=== PATIENT | female | born 1950 | race Caucasian/White ===

== ENCOUNTER → 2017-04-23 | Outpatient (CLI) | payer MEDICARE | END | disposition home or self-care (01) | LOC: CFH 14:12 → MERGE 14:12 | PROVIDERS: ATTEND Physician Assistant | DX: S52.572A Other intraarticular fracture of lower end of left radius, initial encounter for closed fracture (principal); S52.692A Other fracture of lower end of left ulna, initial encounter for closed fracture; M19.042 Primary osteoarthritis, left hand; X58.XXXA Exposure to other specified factors, initial encounter; Y93.89 Activity, other specified; Y92.89 Other specified places as the place of occurrence of the external cause; Y99.8 Other external cause status ==

== ENCOUNTER 2018-02-14 09:04 | Observation (INO) | payer MEDICARE ==
[~2018-02-14] VITALS: Ht 162.6 cm; Wt 86.0 kg
[2018-02-14] MEDS ORDERED: ASPIRIN (09:18)
[2018-02-14] MEDS ORDERED: ASPI-650 PO ×2 (09:18→09:52)
[2018-02-14] MEDS ORDERED: MECLIZINE CHEWABLE 25 MG TAB PO ONE (09:30)
[2018-02-14] MEDS ORDERED: ONDANSETRON ODT 4 MG PO ONE (09:30)
[2018-02-14] MEDS ORDERED: SODIUM CHLORIDE FLUSH 10ML SYR IVF ONE (09:30)
[2018-02-14] MEDS ORDERED: LISINOPRIL (09:51)
[2018-02-14] MEDS ORDERED: HCTZ (09:51)
[2018-02-14] MEDS ORDERED: SIMVASTATIN (09:51)
[2018-02-14] MEDS ORDERED: ONDANSETRON ODT 4 MG ONE (10:00)
[2018-02-14] MEDS ORDERED: MECLIZINE CHEWABLE 25 MG TAB ONE (10:00)
[2018-02-14 10:07] LABS: BASOPHILS # (AUTO) 0.02 x10^3/uL (0-0.1); BASOPHILS % (AUTO) 0 % (0-1); EOSINOPHILS # (AUTO) 0.16 x10^3/uL (0-0.4); EOSINOPHILS % (AUTO) 3 % (1-7); LYMPHOCYTES # (AUTO) 1.38 x10^3/uL (1-3.4); LYMPHOCYTES % (AUTO) 25 % (22-44); MD NO; MEAN CORPUSCULAR HEMOGLOBIN 32.2 pg (27.0-34.8); MEAN CORPUSCULAR HGB CONC 34.3 g/dL (32.4-35.8); MEAN CORPUSCULAR VOLUME 93.9 fL (80-100); MONOCYTES # (AUTO) 0.44 x10^3/uL (0.2-0.8); MONOCYTES % (AUTO) 8 % (2-9); NEUTROPHILS # (AUTO) 3.57 x10^3/uL (1.8-6.8); NEUTROPHILS % (AUTO) 64 % (42-75); PLATELET COUNT 259 x10^3/uL (130-400); RED BLOOD COUNT 4.41 x10^6/uL (3.82-5.3)
[2018-02-14 10:15] LABS: ALANINE AMINOTRANSFERASE 25 U/L (12-78); ALBUMIN 3.8 g/dL (3.4-5.0); ANION GAP 8 mmol/L (5-15); CALCIUM 9.9 mg/dL (8.5-10.1); CHLORIDE 103 mmol/L (98-107)
[2018-02-14 10:20] LABS: ALKALINE PHOSPHATASE 62 U/L (45-117); BILIRUBIN,TOTAL 0.5 mg/dL (0.2-1.0); TOTAL PROTEIN 7.4 g/dL (6.4-8.2); TROPONIN I < 0.015 ng/mL (0.000-0.045)
[2018-02-14 10:23] LABS: INTERNATIONAL NORMALIZED RATIO 0.93 (0.93-1.1); PROTHROMBIN TIME 9.6 Seconds (9.6-11.5)
[2018-02-14] MEDS ORDERED: SODIUM CHLORIDE FLUSH 10ML SYR IVF PRN (11:00)
[2018-02-14] MEDS ORDERED: ENALAPRILAT 1.25 MG/ML, 2ML IVPush PRN (11:30)
[2018-02-14] MEDS ORDERED: BISACODYL 10 MG SUPP PR PRN (11:30)
[2018-02-14] MEDS ORDERED: hydrALAzine 20 MG/ML, 1ML IVPush PRN (11:30)
[2018-02-14] MEDS ORDERED: POLYETHYLENE GLYCOL 17 GM PACKET PO PRN (11:30)
[2018-02-14] MEDS ORDERED: ACETAMINOPHEN 325 MG TABLET PO PRN (11:30)
[2018-02-14] MEDS ORDERED: LABETALOL 5MG/ML, 20ML IVPush PRN (11:30)
[2018-02-14] MEDS ORDERED: DOCUSATE 100 MG CAPSULE PO PRN (11:30)
[2018-02-14] MEDS ORDERED: ONDANSETRON 2MG/ML, 2ML IVPush PRN (11:30)
[2018-02-14 11:52] LABS: MICROSCOPIC NOT IND
[2018-02-14 11:54] LABS: CULTURE INDICATED? NO
[2018-02-14] MEDS ORDERED: BUPR150T73 PO (11:58)
[2018-02-14] MEDS ORDERED: ALEN70TA5 PO (11:58)
[2018-02-14] MEDS ORDERED: HYDR12.53 PO (11:58)
[2018-02-14] MEDS ORDERED: LISI40TA PO (11:58)
[2018-02-14] MEDS ORDERED: SIMV40TA3 PO (11:58)
[2018-02-14] MEDS ORDERED: GADOBUTROL 7.5 MMOL/7.5 ML PFS ONE (12:03)
[2018-02-14] MEDS: SODIUM CHLORIDE 0.9% 1,000 ML IV SCH ×2 (13:29→23:03)
[2018-02-14 14:00] VITALS: BP 120/74
[2018-02-14 14:02] VITALS: BP 142/81
[2018-02-14 14:04] VITALS: BP 137/82
[2018-02-14] MEDS: [UNRECOGNIZED DRUG - OTHER] MC SCH ×2 (14:30→22:30)
[2018-02-14] MEDS: HEPARIN 5,000 UNITS/ML, 1ML SQ SCH ×2 (15:20→23:03)
[2018-02-14 19:00] VITALS: BP 110/73
[2018-02-14 19:05] VITALS: BP 143/80
[2018-02-14 19:14] VITALS: BP 133/88
[2018-02-14] MEDS: BUPROPION SR 150 MG TABLET PO SCH (20:23)
[2018-02-14] MEDS ORDERED: SIMVASTATIN 40 MG TABLET PO SCH (21:00)
[2018-02-14] MEDS ORDERED: NICOTINE 14MG/24 HR PATCH.TD24 TD SCH (21:00)
[2018-02-15] VITALS (7 sets, daily range): BP systolic 115–146; BP diastolic 71–82
[2018-02-15] MEDS: [UNRECOGNIZED DRUG - OTHER] MC SCH ×2 (05:47→07:48)
[2018-02-15 05:58] LABS: ANION GAP 8 mmol/L (5-15); CALCIUM 9.4 mg/dL (8.5-10.1); CHLORIDE 108 mmol/L (98-107)
[2018-02-15 05:59] LABS: BASOPHILS # (AUTO) 0.03 x10^3/uL (0-0.1); BASOPHILS % (AUTO) 1 % (0-1); EOSINOPHILS # (AUTO) 0.14 x10^3/uL (0-0.4); EOSINOPHILS % (AUTO) 3 % (1-7); LYMPHOCYTES % (AUTO) 37 % (22-44); MD NO; MEAN CORPUSCULAR HGB CONC 33.2 g/dL (32.4-35.8); MEAN CORPUSCULAR VOLUME 93.3 fL (80-100); MEAN PLATELET VOLUME 8.2 fL (7.4-10.4); MONOCYTES # (AUTO) 0.44 x10^3/uL (0.2-0.8); MONOCYTES % (AUTO) 8 % (2-9); NEUTROPHILS # (AUTO) 2.85 x10^3/uL (1.8-6.8); NEUTROPHILS % (AUTO) 52 % (42-75); PLATELET COUNT 228 x10^3/uL (130-400); RED CELL DISTRIBUTION WIDTH 13.3 % (9.6-15.2)
[2018-02-15 06:09] LABS: CREATININE 0.98 mg/dL (0.55-1.02)
[2018-02-15] MEDS ORDERED: ALENDRONATE 70 MG TABLET PO SCH (06:30)
[2018-02-15] MEDS ORDERED: ASPIRIN 325 MG TABLET EC PO SCH (09:00)
[2018-02-15] MEDS ORDERED: LISINOPRIL 20 MG TABLET PO SCH (09:00)
[2018-02-15] MEDS ORDERED: HYDROCHLOROTHIAZIDE 12.5 MG CAPSULE PO SCH (09:00)
[2018-02-15] MEDS: HEPARIN 5,000 UNITS/ML, 1ML SQ SCH ×2 (09:02→15:30)
[2018-02-15] MEDS: BUPROPION SR 150 MG TABLET PO SCH (09:03)
[2018-02-15] MEDS: SODIUM CHLORIDE 0.9% 1,000 ML IV SCH ×2 (09:04→17:26)
[2018-02-15] MEDS ORDERED: SODIUM CHLORIDE 0.9%, 500ML IVBOLUS ONE (13:00)
== END 2018-02-15 17:55 | disposition home or self-care (01) ==
LOC: ED 11:23 → EDIP 11:26 → INTOOBSV 11:26 → 4EST 12:51 → UNDODISIN 02-15 17:55
PROVIDERS: ADMIT Internal Medicine; ATTEND Internal Medicine
DX: R42 Dizziness and giddiness (principal); N17.0 Acute kidney failure with tubular necrosis; E72.51 Non-ketotic hyperglycinemia; I10 Essential (primary) hypertension; Z85.3 Personal history of malignant neoplasm of breast; Z86.73 Personal history of transient ischemic attack (TIA), and cerebral infarction without residual deficits
CPT/HCPCS: 36415; 70450; 70553; 71045; 80048; 80053; 81003; 83735; 84100; 84443; 84484; 85025; 85610; 85730; 93005; 93306; 96360; 96361; 96372; 97161; 97165; 99285; A9585; G0378; G8978; G8979; G8980; J1644; J7030; J7040; Q0162

== ENCOUNTER → 2018-04-16 | Outpatient (CLI) | payer MEDICARE ==
[~2018-04-16] MED LIST: ALEN70TA5 PO; ASPI-650 PO; ASPIRIN; BUPR150T73 PO; HCTZ; HYDR12.53 PO; LISI40TA PO; LISINOPRIL; SIMV40TA3 PO; SIMVASTATIN
== END | disposition home or self-care (01) ==
LOC: CFH 10:55
PROVIDERS: ATTEND Nurse Practitioner
DX: Z12.31 Encounter for screening mammogram for malignant neoplasm of breast (principal); Z85.3 Personal history of malignant neoplasm of breast
CPT/HCPCS: 77067

== ENCOUNTER → 2018-05-26 | Outpatient (CLI) | payer MEDICARE ==
[~2018-05-26] MED LIST changes: +BUPIVACAINE/PF 0.5% ONE; +LIDOCAINE-MPF 1%, 5ML ONE; +ROPivacaine/PF 0.2%, 10 ML ONE; +TRIAMCINOLONE ACETONIDE 40 MG/ML, 1ML ONE
== END | disposition home or self-care (01) ==
LOC: RAD 08:57
PROVIDERS: ATTEND Nurse Practitioner
DX: M19.071 Primary osteoarthritis, right ankle and foot (principal)
CPT/HCPCS: 20605; 77002; J2795; J3301; J3490

== ENCOUNTER 2018-08-12 12:30 | Emergency (ER) | payer MEDICARE, OTHER ==
[~2018-08-12] VITALS: Ht 162.6 cm; Wt 86.4 kg
[~2018-08-12 12:30] MED LIST changes: -ALEN70TA5 PO; +ALEN70TA6 PO; -BUPIVACAINE/PF 0.5% ONE; +HYDR12.517 PO; -HYDR12.53 PO; -LIDOCAINE-MPF 1%, 5ML ONE; -ROPivacaine/PF 0.2%, 10 ML ONE; -TRIAMCINOLONE ACETONIDE 40 MG/ML, 1ML ONE
[2018-08-12] MEDS ORDERED: L.E.T SOLUTION TP ONE (12:42)
--- NOTE | 2018-08-12 12:59 | NUR ---
PT TO CT AT THIS TIME
[2018-08-12] MEDS ORDERED: LIDOCAINE 1%, 10ML INFIL ONE (13:00)
--- NOTE | 2018-08-12 14:30 | NUR ---
PRESSURE DRESSING APPLIED TO OCCIPITAL WOUND
[2018-08-12 14:41] VITALS: BP 144/65
== END 2018-08-12 14:43 | disposition home or self-care (01) ==
LOC: ED 14:40
DX: S00.03XA Contusion of scalp, initial encounter (principal); R51 Headache; Z86.73 Personal history of transient ischemic attack (TIA), and cerebral infarction without residual deficits; Z85.3 Personal history of malignant neoplasm of breast; W01.0XXA Fall on same level from slipping, tripping and stumbling without subsequent striking against object, initial encounter; Y93.01 Activity, walking, marching and hiking; Y92.009 Unspecified place in unspecified non-institutional (private) residence as the place of occurrence of the external cause; Y99.8 Other external cause status
CPT/HCPCS: 70450; 99284

== ENCOUNTER → 2018-12-23 | Outpatient (CLI) | payer MEDICARE | END | disposition home or self-care (01) | LOC: CFH 11:00 | PROVIDERS: ATTEND Nurse Practitioner Family | DX: Z12.2 Encounter for screening for malignant neoplasm of respiratory organs (principal); Z87.891 Personal history of nicotine dependence | CPT/HCPCS: G0297 ==

== ENCOUNTER 2019-05-05 15:20 | Outpatient (CLI) | payer MEDICARE | END 2019-05-05 23:59 | disposition home or self-care (01) | LOC: CFH 15:20 | PROVIDERS: ATTEND Genetic Counselor, MS | DX: Z12.31 Encounter for screening mammogram for malignant neoplasm of breast (principal); Z85.3 Personal history of malignant neoplasm of breast; Z90.12 Acquired absence of left breast and nipple | CPT/HCPCS: 77067 ==

== ENCOUNTER → 2019-05-27 | Outpatient (CLI) | payer MEDICARE | END | disposition home or self-care (01) | LOC: CFH 13:57 | PROVIDERS: ATTEND Genetic Counselor, MS | DX: R92.2 Inconclusive mammogram (principal); N63.10 Unspecified lump in the right breast, unspecified quadrant; Z85.3 Personal history of malignant neoplasm of breast; F17.200 Nicotine dependence, unspecified, uncomplicated | CPT/HCPCS: 76642; 77065; G0279 ==

== ENCOUNTER 2019-06-04 12:27 | Outpatient (CLI) | payer MEDICARE ==
[2019-06-04] MEDS ORDERED: SODIUM BICARBONATE 4.2%, 5ML ONE (14:18)
[2019-06-04] MEDS ORDERED: LIDOCAINE 1%, 20ML ONE (14:18)
[2019-06-04] MEDS ORDERED: LIDOCAINE 1%-EPI 1:100K, 20ML ONE (14:18)
== END 2019-06-04 23:59 | disposition home or self-care (01) ==
LOC: CFH 12:27
PROVIDERS: ATTEND Genetic Counselor, MS
DX: R92.1 Mammographic calcification found on diagnostic imaging of breast (principal); C50.911 Malignant neoplasm of unspecified site of right female breast; Z17.0 Estrogen receptor positive status [ER+]
CPT/HCPCS: 19081; 77065; 88305; 88341; 88342; 88360; 88361; J3490

== ENCOUNTER 2019-07-03 15:05 | Outpatient (CLI) | payer MEDICARE ==
[2019-07-03] MEDS ORDERED: LISI1TAB19 PO (16:14)
[2019-07-03] MEDS ORDERED: CHOL10003 PO (16:14)
[2019-07-03] MEDS ORDERED: ASPI-496 PO (16:14)
[2019-07-03] MEDS ORDERED: BUPR150T73 PO (16:14)
[2019-07-03] MEDS ORDERED: VITA1CAP PO (16:14)
[2019-07-03] MEDS ORDERED: TURM500C4 PO (16:14)
== END 2019-07-03 23:59 | disposition home or self-care (01) ==
LOC: STAR 15:05
PROVIDERS: ATTEND Surgery
DX: Z01.818 Encounter for other preprocedural examination (principal); C50.811 Malignant neoplasm of overlapping sites of right female breast; N62 Hypertrophy of breast; Z85.3 Personal history of malignant neoplasm of breast
CPT/HCPCS: 93005

== ENCOUNTER 2019-07-09 06:51 | Day surgery (SDC) | payer MEDICARE ==
[~2019-07-09] VITALS: Ht 162.6 cm; Wt 83.3 kg
[~2019-07-09 06:51] MED LIST changes: +ASPI-496 PO; +CHOL10003 PO; +LISI1TAB19 PO; +TURM500C4 PO; +VITA1CAP PO
[2019-07-09] MEDS ORDERED: ISOSULFAN BLUE 10 MG/ML, 5ML IV ONE ×2 (08:19→12:16)
[2019-07-09] MEDS ORDERED: BUPIVACAINE/PF-EPI 0.25% 1:200K ONE (08:19)
[2019-07-09] MEDS ORDERED: EPINEPHRINE 1 MG/ML, 1ML ONE (08:21)
[2019-07-09] MEDS ORDERED: BUPIVACAINE/PF 0.5% ONE (08:21)
[2019-07-09 09:28] VITALS: BP 120/71
[2019-07-09] MEDS ORDERED: LACTATED RINGERS 1,000 ML IV SCH (09:31)
[2019-07-09] MEDS ORDERED: MIDAZOLAM 1 MG/ML, 2ML ONE (10:59)
[2019-07-09] MEDS ORDERED: FENTANYL PF 250 MCG/5ML ONE (11:02)
[2019-07-09] MEDS ORDERED: SCOPOLAMINE PATCH, 1.5MG PATCH.TD72 TD ONE ×2 (11:06)
[2019-07-09] MEDS ORDERED: ACETAMINOPHEN 500 MG TABLET ONE ×2 (11:06)
[2019-07-09] MEDS ORDERED: GABAPENTIN 300 MG CAPSULE ONE ×2 (11:06)
[2019-07-09] MEDS ORDERED: BUPIVACAINE/PF-EPI 0.25% 1:200K INFIL ONE (12:16)
[2019-07-09] MEDS ORDERED: LABETALOL 5MG/ML, 20ML IV PRN ×2 (12:30)
[2019-07-09] MEDS ORDERED: ALBUTEROL SULFATE 2.5 MG/3 ML NPPB PRN ×2 (12:30)
[2019-07-09] MEDS ORDERED: DIAZEPAM 5 MG/ML, 2ML IVPush PRN ×2 (12:30)
[2019-07-09] MEDS ORDERED: HYDROmorphone 2 MG/ML, 1ML IVPush PRN ×2 (12:30)
[2019-07-09] MEDS ORDERED: KETOROLAC 30 MG/1 ML IV PRN (12:30)
[2019-07-09] MEDS ORDERED: hydrALAzine 20 MG/ML, 1ML IV PRN ×2 (12:30)
[2019-07-09] MEDS ORDERED: FENTANYL PF 100 MCG/2ML IV PRN ×2 (12:30)
[2019-07-09] MEDS ORDERED: MEPERIDINE/PF 25MG/0.5ML IVPush PRN ×2 (12:30)
[2019-07-09] MEDS ORDERED: ACETAMINOPHEN 325 MG TABLET PO PRN (12:30)
[2019-07-09] MEDS ORDERED: PROMETHAZINE 25 MG/ML, 1ML IV PRN ×2 (12:30)
[2019-07-09] MEDS ORDERED: OXYcodone 5 MG/5 ML ORAL.SOL UDC PO PRN ×2 (12:30)
[2019-07-09] MEDS ORDERED: GLYCOPYRROLATE 0.2MG/1ML, 5ML ONE (13:07)
[2019-07-09] MEDS ORDERED: SUGAMMADEX 200 MG/2 ML IVPush ONE (13:07)
[2019-07-09] MEDS ORDERED: ROCURONIUM 10MG/ML,5ML ONE (13:07)
[2019-07-09] MEDS ORDERED: NEOSTIGMINE 1 MG/ML, 10ML ONE (13:07)
[2019-07-09] MEDS ORDERED: DEXAMETHASONE 4 MG/ML, 1ML ONE (13:07)
[2019-07-09] MEDS ORDERED: PROPOFOL 10 MG/ML, 20ML ONE (13:07)
[2019-07-09] MEDS ORDERED: ONDANSETRON 2MG/ML, 2ML ONE (13:07)
[2019-07-09] MEDS ORDERED: CEFAZOLIN 1,000 MG ONE (13:07)
[2019-07-09] MEDS ORDERED: SUCCINYLCHOLINE 20 MG/ML, 10ML ONE (13:07)
[2019-07-09] MEDS ORDERED: LIDOCAINE 1%, 20ML ONE (14:01)
[2019-07-09] MEDS ORDERED: SODIUM BICARBONATE 4.0%, 5ML ONE (14:01)
[2019-07-09] MEDS ORDERED: LIDOCAINE 1%-EPI 1:100K, 20ML ONE (14:01)
== END 2019-07-09 16:40 | disposition home or self-care (01) ==
LOC: OR 06:51 → ORIP 08:53 → UNDOADMOB 08:53 → ORIP 09:08 → OR 16:40
PROVIDERS: ATTEND Surgery
DX: C50.811 Malignant neoplasm of overlapping sites of right female breast (principal); N65.1 Disproportion of reconstructed breast; I10 Essential (primary) hypertension; E78.5 Hyperlipidemia, unspecified; G47.33 Obstructive sleep apnea (adult) (pediatric); F17.210 Nicotine dependence, cigarettes, uncomplicated; E66.9 Obesity, unspecified; Z17.0 Estrogen receptor positive status [ER+]; Z68.32 Body mass index [BMI] 32.0-32.9, adult; Z79.82 Long term (current) use of aspirin; Z79.899 Other long term (current) drug therapy; Z86.73 Personal history of transient ischemic attack (TIA), and cerebral infarction without residual deficits; Z90.12 Acquired absence of left breast and nipple; Z92.21 Personal history of antineoplastic chemotherapy; Z80.3 Family history of malignant neoplasm of breast
CPT/HCPCS: 15570; 19281; 19301; 38792; 76098; 88307; 88329; A9541; C1729; J0171; J0690; J1100; J2250; J2405; J2704; J3010; J3490; J7120; J2710; J0330

== ENCOUNTER → 2019-08-06 | Outpatient (CLI) | payer MEDICARE | END | disposition home or self-care (01) | LOC: ROC 08:43 | PROVIDERS: ATTEND Radiology Radiation Oncology | DX: C50.811 Malignant neoplasm of overlapping sites of right female breast (principal); Z92.3 Personal history of irradiation; Z79.82 Long term (current) use of aspirin; Z85.3 Personal history of malignant neoplasm of breast; Z79.899 Other long term (current) drug therapy | CPT/HCPCS: G0463 ==

== ENCOUNTER → 2019-08-21 | Outpatient (CLI) | payer MEDICARE ==
[~2019-08-21] MED LIST changes: +SIMV40TA20 PO; -SIMV40TA3 PO
== END | disposition home or self-care (01) ==
LOC: RAD 09:55
PROVIDERS: ATTEND Internal Medicine Hematology & Oncology
DX: C79.89 Secondary malignant neoplasm of other specified sites (principal); C50.811 Malignant neoplasm of overlapping sites of right female breast; K44.9 Diaphragmatic hernia without obstruction or gangrene; K76.0 Fatty (change of) liver, not elsewhere classified
CPT/HCPCS: 71046; 76700; 78306; A9503

== ENCOUNTER → 2020-01-19 | Outpatient (CLI) | payer MEDICARE | END | disposition home or self-care (01) | LOC: CFH 10:59 | PROVIDERS: ATTEND Nurse Practitioner Family | DX: M85.88 Other specified disorders of bone density and structure, other site (principal); N95.9 Unspecified menopausal and perimenopausal disorder | CPT/HCPCS: 77080 ==

== ENCOUNTER → 2020-07-13 | Outpatient (CLI) | payer MEDICARE ==
[~2020-07-13] MED LIST changes: -ALEN70TA6 PO; +ALEN70TA66 PO; -LISI1TAB19 PO; +LISI1TAB39 PO
== END | disposition home or self-care (01) ==
LOC: CFH 15:15
PROVIDERS: ATTEND Genetic Counselor, MS
DX: Z12.31 Encounter for screening mammogram for malignant neoplasm of breast (principal)
CPT/HCPCS: 77063; 77067

== ENCOUNTER → 2020-09-26 | Outpatient (CLI) | payer MEDICARE ==
[~2020-09-26] MED LIST changes: -ALEN70TA66 PO; +ALEN70TA77 PO; +ASPI-1026 PO; -ASPI-650 PO; -LISI40TA PO; +LISI40TA9 PO
== END | disposition home or self-care (01) ==
LOC: RAD 12:12
PROVIDERS: ATTEND Physician Assistant
DX: N20.0 Calculus of kidney (principal); I87.8 Other specified disorders of veins; K59.00 Constipation, unspecified; Z96.641 Presence of right artificial hip joint
CPT/HCPCS: 74018

== ENCOUNTER → 2021-03-04 | Outpatient (CLI) | payer MEDICARE ==
[2021-03-04 15:14] LABS: ALBUMIN 3.8 g/dL (3.4-5.0); ANION GAP 6 mmol/L (5-15); CALCIUM 10.1 mg/dL (8.5-10.1); CHLORIDE 106 mmol/L (98-107)
[2021-03-04 15:39] LABS: ALANINE AMINOTRANSFERASE 21 U/L (12-78); ALKALINE PHOSPHATASE 70 U/L (45-117); BILIRUBIN,TOTAL 0.5 mg/dL (0.2-1.0); CHOL/HDL RATIO 2.2; CHOLESTEROL, TOTAL 165 mg/dL (140-239); CREATININE 0.74 mg/dL (0.55-1.02); HDL CHOL % 45 % (28-40); HDL CHOLESTEROL (DIRECT) 74 mg/dL (40-60); LDL CHOLESTEROL,CALCULATED 72 mg/dL (54-169); TOTAL PROTEIN 6.9 g/dL (6.4-8.2); TRIGLYCERIDES 97 mg/dL (50-200); VLDL CHOLESTEROL 19 mg/dL (0-25)
[2021-03-04 15:40] LABS: FOLATE LEVEL > 20.0 ng/mL (3.1-17.5)
== END | disposition home or self-care (01) ==
LOC: LAB 14:23
PROVIDERS: ATTEND Nurse Practitioner Family
DX: I10 Essential (primary) hypertension (principal); M19.072 Primary osteoarthritis, left ankle and foot; M79.671 Pain in right foot; Z87.891 Personal history of nicotine dependence; Z79.01 Long term (current) use of anticoagulants; Z86.73 Personal history of transient ischemic attack (TIA), and cerebral infarction without residual deficits; Z91.81 History of falling
CPT/HCPCS: 80053; 80061; 82306; 82607; 82746; 83036; 84443